=== PATIENT | female | born 1950 | race Caucasian/White ===

== ENCOUNTER 2022-02-11 09:02 | Day surgery (SDC) | payer MEDICARE, OTHER ==
[2022-02-11] MEDS ORDERED: CEFAZOLIN 2 GM-D5W BAG** 2 GM/50 ML ML IV ONE (09:47)
[2022-02-11] MEDS ORDERED: Lactated Ringers 1,000 ML IV ONE ×2 (09:47→12:45)
[2022-02-11] MEDS ORDERED: CEFAZOLIN 2 GM-D5W BAG** 2 GM/50 ML ML IV SCH (10:00)
[2022-02-11] MEDS ORDERED: Lactated Ringers 1,000 ML IV SCH (10:00)
[2022-02-11] MEDS ORDERED: Xylocaine 1% Vial 30 ML PF IJ ONE (11:22)
[2022-02-11] MEDS ORDERED: Marcaine Mpf 0.5% Vial 30 Ml ONE (11:23)
[2022-02-11 11:33] LABS: ALBUMIN 3.8 g/dL (3.5-5.0); ALKALINE PHOSPHATASE 81 U/L (38-126); ANION GAP 8.1 MEQ/L (5-15); BLOOD UREA NITROGEN 18 mg/dL (7-17); CHLORIDE 103 mmol/L (98-107); Calcium 8.4 mg/dL (8.4-10.2); Carbon Dioxide 28 mmol/L (22-30); Creatinine 1 0.68 mg/dL (0.52-1.04); EST GLOMERULAR FILTRATION RATE > 60.0 ML/MIN; Glucose 112 mg/dL (74-106); SGOT/AST 28 U/L (14-36); SGPT/ALT 22 U/L (0-35); SODIUM 136 mmol/L (137-145); Total Protein 6.6 g/dL (6.3-8.2)
[2022-02-11] MEDS ORDERED: Sodium Chloride 0.9% 250 ML 250 ML IV ONE (11:35)
[2022-02-11] MEDS ORDERED: Versed 2 MG/2 ML Injection ONE (11:46)
[2022-02-11] MEDS ORDERED: DIPRIVAN 200 MG/20 ML IV ONE (11:46)
[2022-02-11] MEDS ORDERED: SUBLIMAZE 100 MCG/2 ML ONE (11:46)
[2022-02-11] MEDS ORDERED: Xylocaine-Mpf 2% 5 Ml Vial ONE (12:11)
[2022-02-11] MEDS ORDERED: Ephedrine Sulfate 50 MG/ML ONE (12:25)
[2022-02-11] MEDS ORDERED: TORAdol 30 mg Injection ONE (14:05)
--- NOTE | 2022-02-11 14:18 | XRAY ---
Indication: Left foot bunionectomy. Intraoperative fluoroscopy provided for 9 minutes 17 seconds. 26 digital spot images submitted for interpretation ultimately demonstrates 1st metatarsophalangeal bunionectomy with intact screws. Correlate with intraoperative findings/report.
[2022-02-11 15:16] VITALS: PULSE 49
[2022-02-11 15:33] VITALS: BP 176/78; O2SAT 97
--- NOTE | 2022-02-11 16:35 | XRAY ---
9 minutes and 17 seconds fluoroscopy time in surgery for minimally invasive bunionectomy of the left foot.
--- NOTE | 2022-02-14 13:12 | OP ---
SURGERY DATE/TIME: 02/11/2022 1203 PREOPERATIVE DIAGNOSES: 1) Left foot pain. 2) Hallux abductovalgus. 3) Difficulty with ambulation. POSTOPERATIVE DIAGNOSES: 1) Left foot pain. 2) Hallux abductovalgus. 3) Difficulty with ambulation. PROCEDURES: 1) Minimally invasive bunionectomy with distal head osteotomy. 2) [place] osteotomy of proximal phalanx. 3) Lateral release. SURGEON: Giovanni Menard DPM. RN FORENSIC: None. ANESTHESIA: General plus a postoperative block in a mini Page injection into the left foot. See injectables for details. HEMOSTASIS: Pressure dressing. ESTIMATED BLOOD LOSS: Less than 5 cc. MATERIALS: 3-0 Nylon and three varied size chamfer screws. INJECTABLES: 20 cc of 1:1 mixture of 1% lidocaine plain and 0.5% bupivacaine plain injected in a Page block-type fashion. INDICATION FOR SURGERY: Lianne is a very pleasant 71-year-old female who presented to my office with concerns of painful bunions to the bilateral lower extremities. The patient indicates that she has had these bunions for some time and this has caused her significant amount of pain. She has been my patient in the past and preferred to perform the procedures in colder months because she is a very active patient and waited until the winter months started before proceeding with addressing these issues. Discussion with patient in regards to options for surgical intervention, x-rays were taken and we discussed that she would be a good candidate for minimally invasive surgical intervention. She understands all risks, complications and benefits of the procedure including but not limited to infection, hematoma, seroma, possibility of delayed bone healing, delayed skin healing, need for further surgical intervention, painful irritating hardware and possibility for need for surgical intervention at a later date. No guarantees were provided as to the outcome of the surgical intervention. Plenty of time was allowed for the patient to ask questions which were answered to her apparent satisfaction. It is with that we decided to proceed. DESCRIPTION OF PROCEDURE AND FINDINGS: The patient is brought into the OR and placed on the OR table in the supine position. At this time general anesthesia was administered until the patient was sedated. Attention was directed to the left foot where a stab incision was placed over the dorsal medial aspect of the proximal edge of the flare of the medial eminence. The incision was deepened utilizing a curved hemostat. A straight periosteal elevator was then carefully utilized to create a working area for the cj. At this time a 2 x 20 mm PROstep PAULO cj was introduced to the central aspect of the surgical site of the first metatarsal with approximately 20 degrees of a proximal medial to distal lateral orientation to account for any shortening that the cj provided. At this time the cj was carried with a straight cut through the bone until it was freed from its soft tissue attachments. Two K-wires were placed from the medial proximal base of the first metatarsal and angled into the translated metatarsal head in the appropriate position. At this time two chamfered screws were introduced and engaged the distal head which was stressed under fluoro and deemed to be in adequate contact with the two bone surfaces. At this time there is still some abduction of the hallux and decision was made to proceed with the lateral release which was carried out under fluoroscopic guidance as well as HELENA osteotomy which was carried out in a percutaneous manner as well. The HELENA osteotomy was carried out in the central aspect of the metatarsal, slight angulation was taken in order to place a screw through it. However, the orientation was just enough that the decision was made to come from a distal medial aspect instead of a proximal medial aspect to secure the fracture site. This was checked under multiple views of fluoroscopic guidance and deemed to be in excellent position with the lateral end intact. Following this copious amounts of sterile saline were utilized to flush the surgical sites. A 3-0 Nylon was then utilized to coapt the skin. A dressing consisting of Betadine, Adaptic, 4x4, Kerlix and SHANNON was applied to the patient's left foot. The patient then was reversed from anesthesia and returned to the postoperative anesthesia care unit with vital signs stable and vascular status intact. The patient handled the anesthesia as well as the procedure without significant complication. Postoperative orders as indicated in the patient's discharge chart.
== END 2022-02-11 15:45 | disposition home or self-care (01) ==
LOC: SDC 09:02 → EDSTATUS 11:56 → SDC 15:45
PROVIDERS: ATTEND Podiatrist Foot & Ankle Surgery
DX: M20.12 Hallux valgus (acquired), left foot (principal); M79.672 Pain in left foot; R26.2 Difficulty in walking, not elsewhere classified; M21.612 Bunion of left foot; I10 Essential (primary) hypertension
CPT/HCPCS: 28035; 28298; 36415; 73630; 76000; 80053; J0690; J1885; J2001; J2250; J2704; J3010